=== PATIENT | female | born 1990 | race Caucasian/White ===

== ENCOUNTER 2018-02-23 20:29 | Emergency (ER) | payer SELFPAY ==
[~2018-02-23] VITALS: Ht 154.9 cm; Wt 85.1 kg
[2018-02-23 21:21] VITALS: BP 135/96
== END 2018-02-24 00:30 | disposition left against medical advice (07) ==
LOC: ER 22:48
DX: R11.2 Nausea with vomiting, unspecified (principal); R19.7 Diarrhea, unspecified; J02.9 Acute pharyngitis, unspecified; M54.5 Low back pain; Z53.21 Procedure and treatment not carried out due to patient leaving prior to being seen by health care provider